=== PATIENT | male | born 1945 | race American Indian/Alaskan Native ===

== ENCOUNTER 2019-07-16 22:21 | Emergency (ER) | payer MEDICARE ==
--- NOTE | 2019-07-17 06:36 | Emergency Department Report ---
ED General Adult HPI - General Chief complaint: Tube Replacement Stated complaint: SPRINGER CHANGE Time Seen by Provider: 07/17/19 06:07 Source: patient, EMS ( EMS documentation not available at time of chart dictation ), RN notes reviewed Mode of arrival: Ambulatory Limitations: No Limitations - History of Present Illness Initial comments: This patient is not known to this provider previously. During the entire history and physical examination, I am structural steel worker apprentice and escorted by nurse Pedro Brewer the patient is a 73-year-old gentleman. The patient presented with 2 complaints. The patient's first complaint was leaking Springer catheter. He had a Springer ca theter placed at [facility] 2 weeks ago. He presented initially because the distal part of the collection bag of the Springer catheter was leaking from a plastic screw. The Springer catheter was replaced by the nurse prior to my personal evaluation, and this resolved his leaking. The patient endorses a secondary complaint of nontraumatic left lower extremity swelling. This has been present for 6 months. It is constant, does not radiate anywhere, does not have exacerbating or relieving factors. Patient ambulatory with a walker. Patient states that while [facility], he was given prescriptions for "a green pill and green pill", but does not know what presc ription medications he is currently taking. He denies headache, neck pain, chest pain, abdominal pain, shortness of breath. He denies testicular pain and urinary symptoms. -: Sudden, month(s) Location: left, lower extremity Severity scale (0 -10): 0 Consistency: constant Improves with: other Worsens with: other - Related Data Previous Rx's Medication Instructions Recorded Last Taken Type Apixaban [Eliquis] 5 mg PO BID #60 tablet 07/17/19 Unknown Rx Apixaban [Eliquis] 10 mg PO BID 7 Days #28 tablet 07/17/19 Unknown Rx Allergies Allergy/AdvReac Type Severity Reaction Status Date / Time No Known Allergies Allergy Unverified 07/17/19 06:42 ED Review of Systems ROS: Stated complaint: SPRINGER CHANGE Other details as noted in HPI Constitutional: denies: fever Eyes: denies: eye discharge ENT: denies: congestion Respiratory: denies: shortness of breath, wheezing Cardiovascular: edema. denies: syncope Gastrointestinal: denies: abdominal pain Genitourinary: denies: testicular pain Musculoskeletal: other Neurological: denies: weakness Hematological/Lymphatic: denies: easy bleeding ED Past Medical Hx - Past Medical History Previous Medical History?: No Additional medical history: Prostate problems - Surgical History Past Surgical History?: Yes Additional Surgical History: Abdominal surgery - Social History Smoking Status: Current Some Day Smoker Substance Use Type: None - Medications Home Medications: Home Medications Medication Instructions Recorded Confirmed Last Taken Type Apixaban [Eliquis] 5 mg PO BID #60 tablet 07/17/19 Unknown Rx Apixaban [Eliquis] 10 mg PO BID 7 Days #28 tablet 07/17/19 Unknown Rx ED Physical Exam - General Limitations: No Limitations General appearance: alert, in no apparent distress - Head Head exam: Present: atraumatic, normocephalic - Eye Eye exam: Present: normal appearance, EOMI. Absent: nystagmus - ENT ENT exam: Present: normal exam, normal orophraynx, mucous membranes moist, normal external ear exam - Neck Neck exam: Present: normal inspection, full ROM. Absent: tenderness, meningismus - Respiratory Respiratory exam: Present: normal lung sounds bilaterally. Absent: respiratory distress - Cardiovascular Cardiovascular Exam: Present: regular rate, normal rhythm, normal heart sounds. Absent: bradycardia, tachycardia, irregular rhythm, systolic murmur, diastolic murmur, rubs, gallop - GI/Abdominal GI/Abdominal exam: Present: soft. Absent: distended, tenderness, guarding, rebound, rigid, pulsatile mass - Rectal Rectal exam: Present: deferred - exam: Present: normal inspection, testicular tenderness, other (there is a Springer catheter in place draining clear yellow urine. There is no testicular tenderness. There is normal testicular lie. Chaperoned by nurse Pedro Brewer) External exam: Present: normal external exam - Extremities Exam Extremities exam: Present: normal inspection, pedal edema, other (2+ pulses noted in the bilateral upper and lower extremities. The left lower extremity is asymmetrically swollen compared to the right lower extremity with pitting edema. There is erythema noted, suggestive of chronic venous stasis. Both legs have lower extremity swelling, left greater than right. 2+ pulses noted in the bilateral upper and lower extremities. Pelvis is stable, and the muscular compartments are soft. There is no proximal thigh tenderness, swelling.). Absent: calf tenderness - Back Exam Back exam: Present: normal inspection. Absent: tenderness, CVA tenderness (R), CVA tenderness (L), paraspinal tenderness, vertebral tenderness - Neurological Exam Neurological exam: Present: alert, other (there is no facial droop. The tongue is midline. The extraocular movements are intact bilaterally. Speaking in full sentences. Minimal elevation of the base of the tongue. There is 5 out of 5 strength in the bilateral upper and lower extremities, and sensation is intact to light touch in the bilateral upper and lower extremities. Appropriate insight.) - Psychiatric Psychiatric exam: Present: normal affect, normal mood - Skin Skin exam: Present: warm ED Course Vital Signs 07/16/19 07/16/19 07/17/19 22:38 22:42 01:40 Temperature 98.0 F 98 F Pulse Rate 77 77 Respiratory 20 98 H 18 Rate Blood Pressure 118/74 Blood Pressure 118/74 [Left] O2 Sat by Pulse 98 Oximetry 07/17/19 05:16 Temperature Pulse Rate 73 Respiratory 20 Rate Blood Pressure Blood Pressure 150/91 [Left] O2 Sat by Pulse 99 Oximetry - Reevaluation(s) Reevaluation #1: 07/17/19 06:57 Differential diagnosis, including but not limited to: Encounter for Springer catheter malfunction, venous insufficiency, hepatic insufficiency, renal insufficiency, DVT, venous stasis Assessment and plan: 73-year-old gentleman with 2 complaints Complaints #1, Springer catheter malfunction. This is now corrected secondary to Springer catheter being changed by nursing team. He can follow up with outpatient primary care or urology for outpatient maintenance of the catheter. Complaints #2, leg swelling for 6 months. This is most likely venous stasis with venous insufficiency. He is afebrile with reassuring vital signs, not tachypneic, tachycardic and endorses no shortness of breath. I think a DVT is unlikely. We will check basic laboratory studies including d-dimer to risk stratify for DVT. If d-dimer elevated, we will proceed to acquisition of lower extremity DVT study. Reevaluation #2: 07/17/19 10:17 Patient reassessed multiple times. He does not appear to be in any acute distress. He denies chest pain and shortness of breath. To have bilateral DVT. Denies history of cancer that he is aware of. We spoke about systemic anticoagulation. We discussed the risks and benefits, especially including risk of potential dangerous life-threatening bleeding. Patient provides verbal informed consent for initiation of oral anticoagulation therapy. Patient will be started on eliquis He will need to follow up with his outpatient primary care doctor and he can be referred to local outpatient hematology for further outpatient evaluation and workup. He is eating food in his stretcher at this time, and does not appear to be in any acute distress. ED Medical Decision Making - Lab Data Result diagrams: 07/17/19 06:40 07/17/19 06:40 Vital Signs 07/16/19 07/16/19 07/17/19 22:38 22:42 01:40 Temperature 98.0 F 98 F Pulse Rate 77 77 Respiratory 20 98 H 18 Rate Blood Pressure 118/74 Blood Pressure 118/74 [Left] O2 Sat by Pulse 98 Oximetry 07/17/19 05:16 Temperature Pulse Rate 73 Respiratory 20 Rate Blood Pressure Blood Pressure 150/91 [Left] O2 Sat by Pulse 99 Oximetry Vital Signs 07/16/19 07/16/19 07/17/19 22:38 22:42 01:40 Temperature 98.0 F 98 F Pulse Rate 77 77 Respiratory 20 98 H 18 Rate Blood Pressure 118/74 Blood Pressure 118/74 [Left] O2 Sat by Pulse 98 Oximetry 07/17/19 05:16 Temperature Pulse Rate 73 Respiratory 20 Rate Blood Pressure Blood Pressure 150/91 [Left] O2 Sat by Pulse 99 Oximetry - Radiology Data Radiology results: report reviewed, image reviewed Print Report Referring Physician: GHISLAINE AGUILAR Patient Name: DEBBIE ROGERS Date of : 1945 Sex: Male Report Date: 2019-07-17 Report Status: [place] [address] Vascular Lab Report Signed Patient: DEBBIE ROGERS JR MR#: [id number] : 1945 Acct:[id number] Age/Sex: 73 / M ADM Date: 07/16/19 Loc: ED Attending Dr: Ordering Physician: GHISLAINE AGUILAR MD Date of Service: 07/17/19 Procedure(s): VL venous duplex LE BILAT Accession Number(s): [id number] cc: GHISLAINE AGUILAR MD DUPLEX DOPPLER LOWER EXTREMITY VEINS, BILATERAL INDICATION: b/l lower ext swelling. TECHNIQUE: Duplex doppler imaging was performed through the veins of both lower extremities using venous compression and other maneuvers. COMPARISON: None available. FINDINGS: Right Common femoral vein: Nonocclusive DVT appears acute Right Superficial femoral vein: Negative. Right Popliteal vein: Negative. Right Calf veins: Negative. Left Common femoral vein: Negative. Left Superficial femoral vein: There is chronic appearing DVT Left Popliteal vein: There is chronic appearing DVT Left Calf veins: There is acute DVT seen in the left calf Additional findings: None. IMPRESSION: 1. N onocclusive, acute DVT is seen in the right common femoral vein 2. There is occlusive DVT in the left calf which appears acute 3. There is chronic appearing DVT in the left superficial femoral and popliteal veins. CRITICAL RESULT: The technologist called this report to Dr. Aguilar at time 0851 eastern time. Report was confirmed. Signer Name: Filemon Rivera MD Signed: 07/17/2019 9:17 AM Workstation Name: [id number] Transcribed By: Dictated By: Filemon Rivera MD Electronically Authenticated By: Filemon Rivera MD Signed Date/Time: 07/17/19 0917 Critical care attestation.: If time is entered above; I have spent that time in minutes in the direct care of this critically ill patient, excluding procedure time. ED Disposition Clinical Impression: Springer catheter problem Qualifiers: Encounter type: sequela Qualified Code(s): T83.9XXS - Unspecified complication of genitourinary prosthetic device, implant and graft, sequela DVT (deep venous thrombosis) Qualifiers: DVT location: lower extremity Affected thrombotic vein of extremity: unspecified vein of extremity Chronicity: unspecified Laterality: unspecified laterality Qualified Code(s): I82.409 - Acute embolism and thrombosis of unspecified deep veins of unspecified lower extremity Disposition: DC-01 TO HOME OR SELFCARE Is pt being admited?: No Does the pt Need Aspirin: No Condition: Stable Instructions: Deep Venous Thrombosis (ED), Springer Catheter Placement and Care (ED) Additional Instructions: Do not take Motrin, ibuprofen, Naprosyn, Aleve, other blood thinning medications or alcohol. Avoid strenuous physical activities and contact sports. Follow-up with your primary care doctor or hematology doctor within the next 7 days for further outpatient evaluation of bilateral lower extremity DVTs. Follow up with a urology doctor or primary care doctor for Springer catheter maintenance within the next 10-14 days. Return to the emergency room right away with chest pain, shortness of breath, vomiting blood, defecating blood, new, worsening or different symptoms not present on initial emergency room evaluation. When starting the blood thing medication, eliquis, the patient should take 7 mg twice daily for 1 week, followed by 5 mg, twice daily, thereafter. Patient likely will need to be on this blood thinning medication for minimum of 3 months. Patient was given a one-month supply of his prescriptions, therefore, he will need to closely follow up with either outpatient primary care or hematology to continue this prescription. Referrals: MORALES MEDINA MD [Staff Physician] - 3-5 Days [facility] MAYNARD [Provider Group] - 3-5 Days
[2019-07-17 07:07] LABS: Hematocrit 35.6 % (35.5-45.6); Hemoglobin 11.1 gm/dl (11.8-15.2); Mean Corpuscular HGB Conc 31 % (32-34); Mean Corpuscular Volume 78 fl (84-94); Platelet Count 407 K/mm3 (140-440); Red Blood Count 4.58 M/mm3 (3.65-5.03); Red Cell Distribution Width 19.7 % (13.2-15.2)
[2019-07-17 07:14] LABS: INR 1.15 (0.87-1.13); Partial Thromboplastin Time 31.1 Sec. (24.2-36.6)
[2019-07-17 07:16] LABS: Alanine Aminotransferase 11 units/L (7-56); Albumin 3.8 g/dL (3.9-5); BUN/Creatinine Ratio 9; Blood Urea Nitrogen 6 mg/dL (9-20); Calcium 9.2 mg/dL (8.4-10.2); Hemolysis Index 7
--- NOTE | 2019-07-17 09:21 | Vascular Lab Report ---
DUPLEX DOPPLER LOWER EXTREMITY VEINS, BILATERAL INDICATION: b/l lower ext swelling. TECHNIQUE: Duplex doppler imaging was performed through the veins of both lower extremities using venous aleksey zeferino and other maneuvers. COMPARISON: None available. FINDINGS: Right Common femoral vein: Nonocclusive DVT appears acute Right Superficial femoral vein: Negative. Right Popliteal vein: Negative. Right Calf veins: Negative. Left Common femoral vein: Negative. Left Superficial femoral vein: There is chronic appearing DVT Left Popliteal vein: There is chronic appearing DVT Left Calf veins: There is acute DVT seen in the left calf Additional findings: None. IMPRESSION: 1. Nonocclusive, acute DVT is seen in the right common femoral vein 2. There is occlusive DVT in the left calf which appears acute 3. There is chronic appearing DVT in the left superficial femoral and popliteal veins. CRITICAL RESULT: The technologist called this report to Dr. Aguilar at time 0851 eastern time. Report was confirmed. Signer Name: Filemon Rivera MD Signed: 07/17/2019 9:17 AM Workstation Name: [id number]
--- NOTE | 2019-07-17 10:06 | Event Note ---
Date: 07/17/19 spoke with ED attending who did not want formal consultation but discussion on proper OAC. patient with 6 month history of left leg swelling. venous duplex obtained today demonstrated evidence of bilateral lower extremity DVT. no specific OAC required unless concern for cancer. patient should be placed on OAC for minimal 6 months and can follow-up with Hematology.
[2019-07-17 12:31] VITALS: BP 138/74
== END 2019-07-17 13:15 | disposition home or self-care (01) ==
LOC: ED 22:21 → EDBD 22:21 → ED 07-17 13:15
DX: T83.031A Leakage of indwelling urethral catheter, initial encounter (principal); I82.409 Acute embolism and thrombosis of unspecified deep veins of unspecified lower extremity; Z98.890 Other specified postprocedural states; F17.200 Nicotine dependence, unspecified, uncomplicated; Z79.899 Other long term (current) drug therapy; Y84.6 Urinary catheterization as the cause of abnormal reaction of the patient, or of later complication, without mention of misadventure at the time of the procedure
CPT/HCPCS: 36415; 51702; 80053; 82550; 85027; 85379; 85610; 85730; 93970

== ENCOUNTER 2020-08-02 11:22 | Emergency (ER) | payer MEDICARE ==
--- NOTE | 2020-08-02 16:09 | Event Note ---
ED Screening Note Date of service: 08/02/20 Time: 16:08 ED Screening Note: 74-year-old -[place] male presents to the emergency room for 2-day headache. Patient denies any trauma. Denies any nausea vomiting no fever or chills. This initial assessment/diagnostic orders/clinical plan/treatment(s) is/are subject to change based on patients health status, clinical progression and re- assessment by fellow clinical providers in the ED. Further treatment and workup at subsequent clinical providers discretion. Patient/guardian urged not to elope from the ED as their condition may be serious if not clinically assessed and managed. Initial orders include: Patient is given acetaminophen 975 mg p.o. now
[2020-08-02] MEDS ORDERED: ACETAMINOPHEN 325 MG TAB PO ONE (16:10)
--- NOTE | 2020-08-03 05:58 | Cat Scan Report ---
CT HEAD WITHOUT CONTRAST INDICATION: Patient complains of a headache x 3 days., History of head injury during fall 2 months ag o TECHNIQUE: All CT scans at this location are performed using CT dose reduction for ALARA by means of automated exposure control. COMPARISON: None available. FINDINGS: BRAIN: No hemorrhage or mass effect are seen. No evidence of acute infarction is noted. ORBITS: Normal as visualized. SOFT TISSUES OF HEAD: Normal. CALVARIUM: Normal. VISUALIZED PARANASAL SINUSES AND MASTOID AIR CELLS: Clear. ADDITIONAL FINDINGS: None. IMPRESSION: No acute intracranial abnormality. Signer Name: Ambrosio Davis MD Signed: 08/03/2020 5:53 AM Workstation Name: [id number]
--- NOTE | 2020-08-03 06:35 | Emergency Department Report ---
ED Headache HPI - General Chief Complaint: Headache Stated Complaint: HEADACHE Time Seen by Provider: 08/03/20 06:28 Source: patient (A few days) - History of Present Illness Timing/Duration: other Quality: moderate, pressure Head Injury Location: occipital Recent Head Trauma: occasional headaches Associated Symptoms: denies: confusion, fatigue, facial pain, fever/chills, loss of consciousness, nausea/vomiting, nasal congestion, nasal drainage, numbness in legs/feet, sinus infection, stiff neck, vision changes, weakness Allergies/Adverse Reactions: Allergies No Known Allergies Allergy (Unverified 07/17/19 06:42) Home Medications: Ambulatory Orders Apixaban [Eliquis] 5 mg PO BID #60 tablet 07/17/19 Apixaban [Eliquis] 10 mg PO BID 7 Days #28 tablet 07/17/19 ED Review of Systems ROS: Stated complaint: HEADACHE Other details as noted in HPI Comment: All other systems reviewed and negative ED Past Medical Hx - Past Medical History Previous Medical History?: No Additional medical history: Prostate problems - Surgical History Additional Surgical History: Abdominal surgery - Social History Smoking Status: Current Some Day Smoker - Medications Home Medications: Home Medications Medication Instructions Recorded Confirmed Last Taken Type Apixaban [Eliquis] 5 mg PO BID #60 tablet 07/17/19 Unknown Rx Apixaban [Eliquis] 10 mg PO BID 7 Days #28 tablet 07/17/19 Unknown Rx ED Physical Exam - General Limitations: No Limitations General appearance: alert, in no apparent distress - Head Head exam: Present: atraumatic, normocephalic - Eye Eye exam: Present: normal appearance, PERRL, EOMI, other (Negative funduscopic examination). Absent: nystagmus Pupils: Present: normal accommodation. Absent: irregular, unequal - ENT ENT exam: Present: normal exam, normal orophraynx, mucous membranes moist, TM's normal bilaterally, normal external ear exam - Neck Neck exam: Present: normal inspection, full ROM. Absent: tenderness, meningismus, lymphadenopathy - Respiratory Respiratory exam: Present: normal lung sounds bilaterally. Absent: respiratory distress, wheezes, rales, rhonchi, stridor, chest wall tenderness - Cardiovascular Cardiovascular Exam: Present: regular rate, normal rhythm. Absent: systolic murmur, diastolic murmur, rubs, gallop - GI/Abdominal GI/Abdominal exam: Present: soft, normal bowel sounds. Absent: tenderness, guarding, rebound, diminished bowel sounds, hyperactive bowel sounds, hypoactive bowel sounds - Rectal Rectal exam: Present: deferred - Extremities Exam Extremities exam: Present: normal inspection, full ROM, normal capillary refill - Back Exam Back exam: Present: normal inspection. Absent: CVA tenderness (R), CVA tenderness (L) - Neurological Exam Neurological exam: Present: alert, oriented X3, CN II-XII intact, reflexes normal, other (No facial droop no ataxia speech normal normal memory) - Psychiatric Psychiatric exam: Present: normal affect, normal mood - Skin Skin exam: Present: warm, dry, intact, normal color. Absent: rash ED Course Vital Signs 08/02/20 08/03/20 14:45 05:22 Temperature 97.9 F Pulse Rate 76 Respiratory 14 16 Rate Blood Pressure 140/72 O2 Sat by Pulse 99 Oximetry ED Medical Decision Making - Radiology Data Radiology results: report reviewed [facility] [address] [place] [address] Cat Scan Report Signed Patient: DEBBIE ROGERS JR MR#: [id number] : 1945 Acct:[id number] Age/Sex: 74 / M ADM Date: 08/02/20 Loc: ED Attending Dr: Ordering Physician: BABAK HUGHES Date of Service: 08/03/20 Procedure(s): CT head/brain wo con Accession Number(s): [id number] cc: BABAK HUGHES CT HEAD WITHOUT CONTRAST INDICATION: Patient complains of a headache x 3 days., History of head injury during fall 2 months ago TECHNIQUE: All CT scans at this location are performed using CT dose reduction for ALARA by means of automated exposure control. COMPARISON: None available. FINDINGS: BRAIN: No hemorrhage or mass effect are seen. No evidence of acute infarction is noted. ORBITS: Normal as visualized. SOFT TISSUES OF HEAD: Normal. CALVARIUM: Normal. VISUALIZED PARANASAL SINUSES AND MASTOID AIR CELLS: Clear. ADDITIONAL FINDINGS: None. IMPRESSION: No acute intracranial abnormality. Signer Name: Ambrosio Davis MD Signed: 08/03/2020 5:53 AM Workstation Name: [id number] Transcribed By: GISSELLE Dictated By: Ambrosio Davis MD Electronically Authenticated By: Ambrosio Davis MD Signed Date/Time: 08/03/2053 DD/ TD/TT: - Medical Decision Making This patient presents with a headache most consistent with headache. Differential diagnosis includes migraine versus tension type headache. No headache red flags. Neurologic exam without evidence of meningismus, focal neurologic findings.Based on the patient's history and physical there is very low clinical suspicion for significant intracranial pathology. The headache was NOT sudden onset, NOT maximal at onset, there are NO neurologic findings, the patient does NOT have a fever, the patient does NOT have any jaw claudication, the patient does NOT endorse a clotting disorder, patient DENIES any trauma or eye pain and the headache is NOT associated with dizziness or ataxia. Presentation not consistent with acute intracranial bleed to include SAH (lack of risk factors, headache history). Presentation not consistent with acute [employer] infection to include meningitis or brain abscess, Temporal arteritis unlikely, as is acute angle closure glaucoma given history and physical findings. Presentation not consistent with other acute, emergent causes of headache at this time. Plan to treat symptomatically with pain medication. No indication for imaging/LP at this time. Advised him to follow-up with his primary care provider utilize Tylenol or Motrin for pain he request to eat is remained hemodynamically stable during her emergency department and neurologically stable as well Plan: pain medication, CT brain was normal, serial reassessment . Critical care attestation.: If time is entered above; I have spent that time in minutes in the direct care of this critically ill patient, excluding procedure time. ED Disposition Clinical Impression: Cephalgia Disposition: DC-01 TO HOME OR SELFCARE Is pt being admited?: No Does the pt Need Aspirin: No Condition: Stable Instructions: Migraine Headache, Form - Headache Record, Tension Headache, Adult, [id number] Referrals: ZENA CORONA MD [Primary Care Provider] - 3-5 Days
[2020-08-03 06:46] VITALS: BP 131/74
== END 2020-08-03 08:37 | disposition home or self-care (01) ==
LOC: EDBD 11:22 → ED 11:22
DX: R51.9 Headache, unspecified (principal); F17.200 Nicotine dependence, unspecified, uncomplicated; Z98.890 Other specified postprocedural states; Z79.899 Other long term (current) drug therapy
CPT/HCPCS: 70450